=== PATIENT | female | born 1950 | race Caucasian/White ===

== ENCOUNTER → 2024-05-06 | Outpatient (CLI) | payer MEDICARE, SELFPAY ==
--- NOTE | 2024-05-06 12:30 | XR_ITS ---
Examination: Breast ultrasound, unilateral, right complete Date and time of exam: January 06, 2025 1302 hours INDICATIONS: Patient states lump on clinical breast examination by physician detected in the upper outer quadrant right breast one month ago, personal history left breast cancer lumpectomy 2002 Technique: Real-time garcia scale ultrasonographic imaging performed right breast including all 4 quadrants as well as nipple retroareolar and axillary region. Findings: No cystic or solid mass IMPRESSION: BI-RADS Category 1: Negative study
--- NOTE | 2024-05-06 13:15 | XR_ITS ---
Examination: Diagnostic digital mammography, bilateral Computer aided detection 3-D breast Tomosynthesis, bilateral Date and time of exam: May 06, 2024 1314 hours INDICATIONS: Right breast lump detected by physician on clinical breast examination one month ago upper outer right breast Technique: Nonmagnified MLO, CC views of the breasts to been obtained, reconstructed from 3-D Tomosynthesis images. R2 computer aided detection program utilized for evaluation of suspicious masses and/or abnormal calcifications. 3-D Tomosynthesis images obtained. Findings: The breasts are heterogeneously dense, which may obscure small masses Prominent architectural distortion upper outer left breast with skin retraction and thickening Small focus microcalcifications upper inner left breast No suspicious mass right breast noted Impression: BI-RADS Category 0: Incomplete: Need additional imaging evaluation Recommend spot magnification films of grouped microcalcifications upper outer left breast as well as left breast sonography to complete the workup Recommend repeating the right breast sonography in 3 months if palpable abnormality right breast persists.
== END | disposition home or self-care (01) ==
PROVIDERS: PCP Specialist; Referring Provider Obstetrics & Gynecology; Visit Provider Obstetrics & Gynecology
DX: R92.8 Other abnormal and inconclusive findings on diagnostic imaging of breast (principal); Z85.3 Personal history of malignant neoplasm of breast
CPT/HCPCS: 76641; 77062; 77066; G0279

== ENCOUNTER → 2024-06-04 | Outpatient (CLI) | payer MEDICARE, SELFPAY ==
--- NOTE | 2024-06-04 16:30 | XR_ITS ---
Examination: CT left hip, without contrast. 2-D sagittal reconstructions. 2-D coronal reconstructions. 3-D reconstructions. Date and time of exam:June 04, 2024 1639 hrs. Indications: Left hip pain beginning February 2024 CTDI: vol (mGy):7.97 DLP: (mGycm):256 Technique: Multiple 1.25 mm axial sections of the pelvis left hip have been obtained. 2-D sagittal and coronal reconstructions have been obtained. 3-D reconstructions have been obtained. Low dose protocols were performed. One or more of the following dose reduction techniques were used; automated exposure control, adjustment of the mA and/or KV according to patient size, use of iterative reconstruction technique. Findings: Intact urinary bladder No pelvic mass Prominent osteopenia Moderate narrowing hip joints no hip fracture or dislocation Sacral segments and iliac bones including acetabular regions intact Anterior rami intact Impression: Moderate bilateral hip osteoarthritis
== END | disposition home or self-care (01) ==
PROVIDERS: PCP Specialist; Referring Provider Specialist; Visit Provider Specialist
DX: M16.0 Bilateral primary osteoarthritis of hip (principal)
CPT/HCPCS: 73700

== ENCOUNTER 2024-06-26 09:15 | Outpatient (AMB) | payer MEDICARE, SELFPAY ==
[2024-06-26 09:34] VITALS: BP 144/80; PULSE 66; RESP 18; TEMP 36.3; O2SAT 99; BMI 26.2
--- NOTE | 2024-06-26 09:34 | PD.ORTHCLVIS ---
Vital signs 06/26/24 09:34 Height 1.63 m Height Method Stated Weight 69.173 kg Weight Measurement Method Standing Scale BMI 26.2 BP 144/80 H Blood Pressure Source Automatic Cuff Blood Pressure Location Right Upper Arm Position Sitting Respiration 18 Pulse 66 Pulse Source Monitor Temp 97.3 F Temp Source Temporal Artery Scan Pulse Oximetry (%) 99 Oxygen Delivery Method Room Air Med/Allergies Allergies & Medications Allergies No Known Drug Allergies Allergy (Verified 06/26/24 09:35) Medication Reconciliation meloxicam 7.5 mg tablet 7.5 mg PO QDAY #45 tabs 06/26/24 [Rx] Exam Exam Patient is in no acute distress and is cooperative with the examination today. Breathing is nonlabored. In no respiratory distress. Patient has no paraspinal tenderness. Spinal deformity cannot be appreciated. The gait of the patient is nonantalgic Bilateral extremities were evaluated and demonstrates sensation intact to light touch. Palpable pedal pulses are present. No significant edema is present. Bilateral knees were examined and the patient has full strength and range of motion.. The right hip was examined. Patient was able to flex to 90 degrees, adduct to 30 degrees, abduct to 40 degrees, internally rotate to 20 degrees, and externally rotate to 20 degrees. Patient has a negative logroll. Stinchfield is negative. The patient is nontender diffusely to touch. The left hip was examined. Patient was able to flex to 90 degrees, adduct to 30 degrees, abduct to 40 degrees, internally rotate to 20 degrees, and externally rotate to 20 degrees. Patient has a negative logroll. The stinchfield is negative. X-rays demonstrate preserved joint spaces. There is mild arthritis Assessment and Plan Problem List (1) Arthritis of left hip: Status: Acute Plan: Patient is a pleasant 73-year-old female with left hip pain and left hip arthritis. We discussed nonoperative treatment. Will start with meloxicam. I will send her anti-inflammatories as well. The should the pain get worse, we can discuss possibly doing a hip injection Advanced Care Planning Discussion Advance care planning discussed with:: patient and spouse Office Procedures GNS Level of Care Nursing/Assessment Patient Status: Established Patient Nursing Assessment/Reassesment: Medication Reconciliation, Update PMH in EMR and Vital Signs Coordination of Care: Complex Care and Chronic Disease 1-5, Education Complex Pt/Fam, Consent,records obtained, informed consent, Lab and Imaging orders, Results/Orders obtained and Staff clarify orders Established Patient Charge Established Patient Point Assignment: 110 Established Patient Point Charge: EP Level 3 (80-115) MA Intake Visit Data Collection New Patient or Established: Established Patient (seen at [facility] within 3 years) Reason for Visit:: LEFT HIP PAIN Seen by Clinical Staff ONLY (RN/MA): No Verbal consent obtained for Telemed visit?: No 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 This has been ongoing for about 6 months. She is very active. She has not tried significant conservative treatment Personal History Occupation: RETIRED Red flag PMH: BMI BMI Counceling provided: Yes Pain Pain level (0-10): 3 Pain duration: ALL DAY Pain location: groin Pain quality: sharp, dull and aching Pain timing: increases with activity Associated signs & symptoms: stiffness Ambulatory data Ambulatory device: none Treatments Improvement with previous injections: No Improvement with PT: No Improvement with NSAIDS: no Review of Systems Review of Systems: All systems negative unless otherwise noted in HPI.
== END 2024-06-26 10:15 | disposition home or self-care (01) ==
LOC: HODSRG 09:15
PROVIDERS: PCP Specialist; Referring Provider Specialist; Supervising Provider Orthopaedic Surgery Adult Reconstructive Orthopaedic Surgery; Visit Provider Orthopaedic Surgery Adult Reconstructive Orthopaedic Surgery
DX: M16.12 Unilateral primary osteoarthritis, left hip (principal); M25.552 Pain in left hip
CPT/HCPCS: 99213; G0463

== ENCOUNTER 2024-08-25 09:07 | Outpatient (AMB) | payer MEDICARE, SELFPAY ==
[2024-08-25 09:23] VITALS: BP 151/81; PULSE 60; RESP 19; TEMP 36.4; O2SAT 98; BMI 26.0
--- NOTE | 2024-08-25 09:23 | PD.ORTHCLVIS ---
Vital signs 08/25/24 09:23 Height 1.63 m Height Method Stated Weight 69.116 kg Weight Measurement Method Standing Scale BMI 26.0 BP 151/81 H Blood Pressure Source Automatic Cuff Blood Pressure Location Left Upper Arm Position Sitting Respiration 19 Pulse 60 Pulse Source Monitor Temp 97.6 F Temp Source Temporal Artery Scan Pulse Oximetry (%) 98 Oxygen Delivery Method Room Air Med/Allergies Allergies & Medications Allergies No Known Drug Allergies Allergy (Verified 08/25/24 09:24) Medication Reconciliation meloxicam 7.5 mg tablet 7.5 mg PO QDAY #45 tabs 06/26/24 [Rx Confirmed 08/25/24] Exam Exam Patient is in no acute distress and is cooperative with the examination today. Breathing is nonlabored. In no respiratory distress. Patient has no paraspinal tenderness. Spinal deformity cannot be appreciated. The gait of the patient is nonantalgic Bilateral extremities were evaluated and demonstrates sensation intact to light touch. Palpable pedal pulses are present. No significant edema is present. Bilateral knees were examined and the patient has full strength and range of motion.. The right hip was examined. Patient was able to flex to 90 degrees, adduct to 30 degrees, abduct to 40 degrees, internally rotate to 20 degrees, and externally rotate to 20 degrees. Patient has a negative logroll. Stinchfield is negative. The patient is nontender diffusely to touch. The left hip was examined. Patient was able to flex to 90 degrees, adduct to 30 degrees, abduct to 40 degrees, internally rotate to 20 degrees, and externally rotate to 20 degrees. Patient has a negative logroll. The stinchfield is negative. X-rays demonstrate preserved joint spaces. There is mild arthritis Assessment and Plan Problem List (1) Arthritis of left hip: Status: Acute Plan: Patient is a pleasant 73-year-old female with left hip pain and left hip arthritis. We discussed nonoperative treatment. She has done well with meloxicam and anti-inflammatories. Discussed her left knee. She does have valgus alignment. We discussed that we can get an x-ray. She reports the pain is not bad and she does not want any x-rays at this time. We recommend continued NSAIDs Advanced Care Planning Discussion Advance care planning discussed with:: patient Office Procedures GNS Level of Care Nursing/Assessment Patient Status: Established Patient Nursing Assessment/Reassesment: Medication Reconciliation, Update PMH in EMR and Vital Signs Coordination of Care: Complex Care and Chronic Disease 1-5, Education Complex Pt/Fam, Consent,records obtained, informed consent, Results/Orders obtained and Staff clarify orders Established Patient Charge Established Patient Point Assignment: 95 Established Patient Point Charge: EP Level 3 (80-115) MA Intake Visit Data Collection New Patient or Established: Established Patient (seen at [facility] within 3 years) Reason for Visit:: LEFT KNEE POSTERIOR SWELLING/PAIN Seen by Clinical Staff ONLY (RN/MA): No PCP or OBGYN visit in last 3 months: Yes Hx Now: No Do You Feel Safe at Home: Yes Authorities Contacted: N/A Questionairres Past Medical History Past Medical History Have you ever been diagnosed with any of the following: Respiratory Problems Smoking: No Smoking Exposure: No Subjective Visit Visit for: follow up visit and knee Immunization / Flu Flu Vaccine in the Last 12 Months: No Flu Vaccine Exclusion Criteria: No Exclusion Criteria History of Present Illness Chief complaint: LEFT HIP PAIN Patient is a pleasant 73-year-old female with left hip pain. This has been ongoing for about 6 months. She is very active. She has not tried significant conservative treatment She reports that she is now here for left knee pain. She is a Philip's cyst and posterior swelling. She reports that the pain is not bad but she is more concerned about swelling Personal History Occupation: RETIRED Red flag PMH: BMI BMI Counceling provided: Yes Pain Pain level (0-10): 4 Pain duration: CONSTANT Pain location: posterior Pain quality: dull and other (specify) (SWELLING) Pain timing: night and increases with activity Associated signs & symptoms: none Ambulatory data Ambulatory device: none Treatments Improvement with previous injections: No Improvement with PT: No Improvement with NSAIDS: no Review of Systems Review of Systems: All systems negative unless otherwise noted in HPI.
== END 2024-08-25 09:39 | disposition home or self-care (01) ==
LOC: HODSRG 09:07
PROVIDERS: PCP Specialist; Referring Provider Specialist; Supervising Provider Orthopaedic Surgery Adult Reconstructive Orthopaedic Surgery; Visit Provider Orthopaedic Surgery Adult Reconstructive Orthopaedic Surgery
DX: M16.12 Unilateral primary osteoarthritis, left hip (principal); M25.552 Pain in left hip; M71.20 Synovial cyst of popliteal space [Baker], unspecified knee
CPT/HCPCS: 99213; G0463